=== PATIENT | female | born 1995 | race Caucasian/White ===

== ENCOUNTER 2016-08-18 19:20 | Emergency (ER) ==
[2016-08-18 20:50] LABS: MANUAL DIFF NEEDED? NO
[2016-08-18 20:59] LABS: BASO% 0.4 % (0.0-0.8); EOS# 0.12 X1000 (0.0-0.7); EOS% 1.1 % (0.0-10.0); HEMATOCRIT 39.2 % (37.0-47.0); HEMOGLOBIN 13.2 g/dL (12.0-16.0); IMM GRAN# 0.02 X1000 (0.0-0.04); IMM GRAN% 0.2 % (0.0-0.5); LYMPH# 4.15 X1000 (1.2-3.4); LYMPH% 39.4 % (20.5-51.1); MCH 30.6 PG (27-31); MCHC 33.7 g/dL (33-37); MONO# 0.69 X1000 (0.11-0.59); MONO% 6.5 % (1.7-9.3); MPV 10.2 FL (7.4-10.4); NEUT% 52.4 % (42.2-75.2); PLT 229 X1000 (130-400); RBC 4.31 XMIL (4.2-5.4)
[2016-08-18 21:04] LABS: URINE SOURCE CLEAN CATCH
[2016-08-18 21:14] LABS: AGAP 10; ALBUMIN 5.1 g/dL (3.5-5.0); ALKALINE PHOSPHATASE 53 U/L (32-104); BUN 8 mg/dL (8-22); CALCIUM 9.4 mg/dL (8.8-10.2); CHLORIDE 103 mmol/L (98-107); COSMO 276; GOT 12 U/L (10-30); GPT 11 U/L (10-36); POTASSIUM 3.5 mmol/L (3.5-5.1); SODIUM 139 mmol/L (136-145); TCO2 25 mmol/L (25-35); TOTAL PROTEIN 7.8 g/dL (6.3-8.3)
[2016-08-18 21:28] LABS: BILIRUBIN URINE NEGATIVE (NEGATIVE); BLOOD URINE 4+ (NEGATIVE); CLARITY BLOODY (CLEAR); COLOR RED; GLUCOSE URINE NEGATIVE (NEGATIVE); LEUKOCYTES URINE TRACE (NEGATIVE); NITRITE URINE NEGATIVE (NEGATIVE); SP GRAVITY URINE 1.015; UROBILINOGEN URINE NORMAL
[2016-08-18 21:29] LABS: URINE CAST NONE SEEN /LPF; URINE CRYSTAL NONE SEEN /HPF; URINE CULTURE PL NEEDED? YES; URINE RBC TNTC /HPF (<10); URINE WBC <10 /HPF (<10)
--- NOTE | 2016-08-18 21:43 | PROVIDER DOCUMENTATION ---
HPI-Female /OB/Breast - General Chief Complaint: Female Stated Complaint: POSS MISCARRIAGE Time Seen by Provider: 08/18/16 19:42 Allergies/Adverse Reactions: Patient Allergies Allergy/AdvReac Type Severity Reaction Status Date / Time No Known Allergies Allergy Verified 04/03/15 18:17 Home Medications: Pnv95/Ferrous Fumarate/FA [ Multivitamins Tablet] 1 tab PO DAILY - History of Present Illness-Female /OB Nature of Presenting Problem: 21 year old WF presents with c/o lower abd cramping and vaginal bleeding. pt reports she was evaluted by [facility] 10 days ago because she thought she was 12 weeks and has been having abd cramping for many weeks. pt reports they performed an US, and the gestation appeared to be 6 weeks and they were unable to detect a heart beat. they reported to her she is either having a miscarriage or she is so early in the they were unable to detect heart beat. she reports today at noon, she developed severe lower mid abd pain and heavy vaginal bleeding. she reports 2 pads over 2 hours. Location of complaint: reports: suprapubic Review of Systems - Adult - REVIEW OF SYSTEMS - ADULT Constitutional: reports: no symptoms reported. denies: chills, fever, fatique Eyes: reports: no symptoms reported. denies: discharge, blurred vision, double vision Ears, Nose, Mouth & Throat: reports: no symptoms reported. denies: ear discharge, ear pain, nose pain, loose teeth, throat pain, throat swelling Cardiovascular: reports: no symptoms reported. denies: chest pain, palpitations Respiratory: reports: no symptoms reported. denies: chronic cough, cough, shortness of breath, wheezing Gastrointestinal: reports: no symptoms reported. denies: abdominal pain, diarrhea, nausea, vomiting Genitourinary: reports: see HPI, other (vaginal bleeding) Musculoskeletal: reports: no symptoms reported Integumentary: reports: no symptoms reported. denies: hives, itching, rash Neurological: reports: no symptoms reported. denies: ataxia, numbness, paresthesia Psychiatric: reports: no symptoms reported Endocrine: reports: no symptoms reported Hematologic/Lymphatic: reports: no symptoms reported Allergic/Immunologic: reports: no symptoms reported All Other Systems: Reviewed and Negative Past History - Adult - PAST MEDICAL HISTORY-ADULT Review of Records: reports: Old Records Reviewed, Nursing Assessment Review, Medications Reviewed, Social history reviewed & non-contributory. Major Childhood Illnesses: reports: denies history Cardiovascular: reports: denies history Respiratory: reports: asthma Gastrointestinal: reports: denies history Obstetrical/Gynecological: reports: - spont/elective Genitourinary: reports: denies history Musculoskeletal: reports: denies history Neurological: reports: denies history Psychiatric: reports: depression Endocrine/Immune: reports: denies history Other Conditions: reports: denies history - PRIOR SURGERIES/PROCEDURES Surgical/Procedure History: reports: none - IMMUNIZATION STATUS Childhood Immunizations: See Nurse Assessment Flu Vaccine: See Nurse Assessment - FAMILY HISTORY Family History: reviewed, not pertinent - SOCIAL HISTORY Smoking: cigarettes Provider spent 3-5 mins advising pt. on dangers of tobacco.: Discussed manners to quit use, and f/u contacts for add'l counseling. Substance Use: none/never Alcohol Use Frequency: never Physical Exam-General - PHYSICAL EXAM-ADULT Initial Vital Signs Reviewed: Yes - CONSTITUTIONAL General Appearance: appears well, alert, no apparent distress - EYES Eyes: PERRL/EOMI, pink conjunctivae - HEAD, EARS, NOSE, MOUTH & THROAT HENMT: normocephalic/atraumatic, moist mucous membranes, normal ENT inspection - NECK Neck: non-tender, full range of motion, supple, normal inspection - RESPIRATORY Respiratory: chest non-tender, lungs clear, normal breath sounds - CARDIOVASCULAR Cardiovascular: normal peripheral pulses, regular rate, rhythm, no edema - GASTROINTESTINAL (ABDOMEN) Abdominal Exam: normal bowel sounds, non tender, soft - GENITOURINARY Female Genitalia/Pelvic Exam: external exam normal, speculum exam normal, active bleeding, blood Rectal Exam: deferred Hemoccult Exam: deferred - LYMPHATIC Lymphatic: no adenopathy - MUSCULOSKELETAL Back Exam: normal inspection, no CVA tenderness, no vertebral tenderness Extremity: normal range of motion, non-tender, normal gait - SKIN Integumentary: normal color, normal turgor, warm/dry - NEUROLOGIC Neurologic: grossly normal, no motor/sensory deficits - PSYCHIATRIC Psych/Mental Status: normal mood/affect, normal thought content, normal thought process, oriented x 3 Progress - PLAN OF CARE/RESULTS Progress/Plan/Lab Results: Laboratory Tests 08/18/16 08/18/16 08/18/16 20:45 20:45 20:45 WBC 10.54 RBC 4.31 Hgb 13.2 Hct 39.2 MCV 91.0 MCH 30.6 MCHC 33.7 RDW Std Deviation 11.8 Plt Count 229 MPV 10.2 Immature Gran % (Auto) 0.2 Neut % (Auto) 52.4 Lymph % (Auto) 39.4 [place] % (Auto) 6.5 Eos % (Auto) 1.1 Baso % (Auto) 0.4 Immature Gran # (Auto) 0.02 Neut # (Auto) 5.52 Lymph # (Auto) 4.15 H [place] # (Auto) 0.69 H Eos # (Auto) 0.12 Baso # (Auto) 0.04 Sodium 139 Potassium 3.5 Chloride 103 Carbon Dioxide 25 Anion Gap 10 BUN 8 Creatinine 0.6 Estimated GFR/1.73 m2 > 60 BUN/Creatinine Ratio 13 Glucose 92 Calculated Osmolality 276 Calcium 9.4 Total Bilirubin 0.20 AST 12 ALT 11 Alkaline Phosphatase 53 Total Protein 7.8 Albumin 5.1 H Globulin 3.0 Albumin/Globulin Ratio 2.0 Ser , Semi-Qnt 4923.0 Urine Source Urine Color Urine Clarity Urine pH Ur Specific [place] Urine Protein Urine Ketones Urine Blood Urine Nitrite Urine Bilirubin Urine Urobilinogen Urine Microscopic RBC Urine WBC Urine Microscopic WBC Urine Crystals Urine Bacteria Urine Casts Urine Yeast Urine Glucose ABO/Rh RhIG Candidate? 08/18/16 08/18/16 20:45 20:49 WBC RBC Hgb Hct MCV MCH MCHC RDW Std Deviation Plt Count MPV Immature Gran % (Auto) Neut % (Auto) Lymph % (Auto) [place] % (Auto) Eos % (Auto) Baso % (Auto) Immature Gran # (Auto) Neut # (Auto) Lymph # (Auto) [place] # (Auto) Eos # (Auto) Baso # (Auto) Sodium Potassium Chloride Carbon Dioxide Anion Gap BUN Creatinine Estimated GFR/1.73 m2 BUN/Creatinine Ratio Glucose Calculated Osmolality Calcium Total Bilirubin AST ALT Alkaline Phosphatase Total Protein Albumin Globulin Albumin/Globulin Ratio Ser , Semi-Qnt Urine Source CLEAN CATCH Urine Color RED Urine Clarity BLOODY A Urine pH 7.0 Ur Specific [place] 1.015 Urine Protein 3+(500 mg/dL) A Urine Ketones NEGATIVE Urine Blood 4+ Urine Nitrite NEGATIVE Urine Bilirubin NEGATIVE Urine Urobilinogen NORMAL Urine Microscopic RBC TNTC A Urine WBC TRACE A Urine Microscopic WBC <10 Urine Crystals NONE SEEN Urine Bacteria NEGATIVE Urine Casts NONE SEEN Urine Yeast NONE SEEN Urine Glucose NEGATIVE ABO/Rh A POSITIVE RhIG Candidate? NO Orders Category Date Time Status US OBS COMPLETE < 14 WKS [US] Stat Exams 08/18/16 20:20 Ordered CBC WITH DIFF [HEME] Stat Lab 08/18/16 20:45 Completed CMP [COMPREHENSIVE METABOLIC PANEL] [CHEM] Stat Lab 08/18/16 20:45 Completed QUANT TEST Stat Lab 08/18/16 20:45 Completed RHOGAM WORKUP [BBK] Stat Lab 08/18/16 20:[address] W/POSS RFLX CULT [URINALYSIS] Stat Lab 08/18/16 20:49 Completed URINE CULTURE [RM] Routine Lab 08/18/16 21:29 Ordered Vital Signs - 24 hr 08/18/16 19:40 Temperature 98.2 F Pulse Rate 91 H Respiratory 18 Rate Blood Pressure 113/64 O2 Sat by Pulse 100 Oximetry Departure - Departure Time of Disposition Order: 22:39 DIAGNOSIS: Threatened in first trimester Disposition: HOME 01 Certified Medical Emergency: Emergent Condition: Stable Additional Instructions: Follow up with your ob as soon as possible. ED Follow Up Instructions: You have been treated by a care provider in the Emergency Department. These instructions are being provided to you so you can have an understanding of how to care for yourself upon discharge. Upon discharge from the Emergency Department, you are responsible for making arrangements for follow-up care by a physician of your choice. Take all prescribed medications as directed. Return to the Emergency Department immediately for any new or worsening symptoms. You may call the Physician Referral phone number at [phone] to obtain a list of Physicians who are taking new patients. Referrals: Paul Carnes MD [STAFF PHYSICIAN] - None,PCP [Primary Care Provider] - Forms: Return to School/Parent Work Instructions: Threatened Miscarriage, Miscarriage, [id number] Attestation - Physician/ Mid-level Attestation Patient care was provided by Mid-level provider (OPERATIONAL RISK ANALYST/PA):: Yes Mid-level provider:: Zarina Newby Mid-level documentation review:: The Mid-level provider documentation, treatment plan and medical decision making was reviewed by the physician who agrees with all treatment and medical decision making by the P.
[2016-08-18 23:57] VITALS: BP 107/59
--- NOTE | 2016-08-19 09:09 | Diag Imaging Result Document ---
PROCEDURE NAME: US OBS COMPLETE < 14 WKS - 08/18/2016 OBSTETRICAL ULTRASOUND, LESS THAN 14 WEEKS: FINDINGS: Exam performed using transvaginal probe. The uterus measures 9 cm in length by 4.7 x 3.7 cm in diameter. There is a 1.6 cm oblong fluid collection with some low-level internal echoes located in the cervix. There is a possible yolk sac within this fluid collection but there is no pole nor cardiac activity identified. This is suspicious for a pending . The estimated gestational age based on the gestational sac size would be 5 weeks 6 days. The bilateral ovaries are normal size and demonstrate blood flow signal on Doppler images. There are small right ovarian cysts measuring up to 1 cm. There is no other adnexal mass identified. There is no substantial free fluid identified. IMPRESSION: A 1.6-cm oblong fluid collection with low-level internal echoes and possible yolk sac in the cervix. There is no pole nor cardiac activity seen. This is suspicious for impending . The on-call radiologist provided preliminary results at 10:31 p.m. on 2016. [facility]
== END 2016-08-18 23:57 | disposition home or self-care (01) ==
LOC: P.ED 19:20
DX: O20.0 Threatened abortion (principal); Z3A.01 Less than 8 weeks gestation of pregnancy; O99.331 Smoking (tobacco) complicating pregnancy, first trimester; F17.210 Nicotine dependence, cigarettes, uncomplicated; Z71.6 Tobacco abuse counseling
CPT/HCPCS: 76801; 80053; 81001; 84702; 85025; 86900; 86901; 87088